=== PATIENT | male | born 1945 | race Caucasian/White ===

== ENCOUNTER 2021-08-21 15:28 | Inpatient (IN) ==
[2021-08-21] MEDS ORDERED: levoFLOXacin 750 MG TABLET PO ONE (15:32)
[2021-08-21] MEDS ORDERED: Ipratropium/Albuterol Neb 3 ML IH ONE (15:32)
[2021-08-21] MEDS ORDERED: Acetaminophen 650 MG RECTAL SUPP RC ONE (15:50)
[2021-08-21 15:58] LABS: Red Blood Count 2.77 M/mcL (4.19-5.50); White Blood Count 13.4 K/mcL (4.3-11.1)
[2021-08-21 15:59] LABS: Basophils % 0.2 %; Hematocrit 27.7 % (37.5-50.1); Immature Granulocytes % 0.7 % (0-4); Lymphocytes # 0.4 K/mcL (0.6-4.6); Lymphocytes % 3.3 %; Mean Corpuscular HGB Conc 32.5 g/dL (31.6-35.5); Mean Corpuscular Hemoglobin 32.5 pg (28.0-33.3); Mean Platelet Volume 9.8 fL (9.4-12.4); Monocytes # 0.8 K/mcL (0.0-1.3); Monocytes % 5.8 %; Neutrophils # 12.1 K/mcL (1.6-8.9); Nucleated Red Blood Cells 0.6 /100 WBC (0); Platelet Count 316 K/mcL (140-400); Red Cell Distribution Width 17.2 % (11.5-14.5)
[2021-08-21] MEDS ORDERED: levoFLOXacin 750 MG/150 ML 750 MG/150 ML BAG IVPB ONE (16:00)
[2021-08-21 16:18] LABS: Calcium 9.2 mg/dL (8.6-10.3); INR 1.3; Potassium 4.9 mEq/L (3.5-5.1); Prothrombin Time 14.6 Seconds (9.4-12.1)
[2021-08-21 16:23] LABS: Troponin I 1.61 ng/mL (< 0.04)
[2021-08-21] MEDS: Ipratropium 1 PUFF INHALER IH ONE ×2 (16:28→16:31)
[2021-08-21] MEDS ORDERED: *HR* Heparin 5,000 UNIT/ML VIAL IVP ONE (16:48)
[2021-08-21] MEDS ORDERED: *HR* Heparin 5,000 UNIT/ML VIAL IVP PRN ×2 (16:48)
[2021-08-21] MEDS: Heparin 25,000UNIT/250ML 1/2NS 25,000 UNIT/250 ML IV.SOLN IVC SCH (17:27)
[2021-08-21 17:38] LABS: Hematocrit 26.3 % (37.5-50.1); Hemoglobin 8.4 g/dL (12.9-16.9); Mean Corpuscular HGB Conc 31.9 g/dL (31.6-35.5); Mean Corpuscular Hemoglobin 31.5 pg (28.0-33.3); Mean Corpuscular Volume 98.5 fL (83.0-100.0); Mean Platelet Volume 10.5 fL (9.4-12.4); Platelet Count 296 K/mcL (140-400); Red Blood Count 2.67 M/mcL (4.19-5.50); Red Cell Distribution Width 17.1 % (11.5-14.5); White Blood Count 13.9 K/mcL (4.3-11.1)
[2021-08-21] MEDS ORDERED: Naloxone 0.4 MG/ML INJ IVP PRN (17:50)
[2021-08-21] MEDS ORDERED: Ondansetron 4 MG/2 ML VIAL IVP PRN (17:50)
[2021-08-21 17:52] LABS: Heparin anti-factor XA UFH < 0.04 IU/mL (0.30-0.70); INR 1.3; Prothrombin Time 14.3 Seconds (9.4-12.1)
[2021-08-21] MEDS ORDERED: Vancomycin (wt based) 1,000 MG VIAL IVPB SCH (18:00)
[2021-08-21] MEDS ORDERED: Perflutren Lipid Microsphere 1.3 ML in 0.9 % Sodium Chloride 8.7 ML IVP PRN (18:03)
[2021-08-21] MEDS ORDERED: Morphine Sulfate 2 MG/ML SYRINGE IVP PRN (18:04)
[2021-08-21] MEDS ORDERED: Acetaminophen 650 MG RECTAL SUPP RC PRN (18:05)
[2021-08-21] MEDS ORDERED: Albuterol 2.5 MG/3 ML NEBULIZER IH PRN (18:06)
[2021-08-21] MEDS ORDERED: Vancomycin 1,250 MG/262.5 ML IV.SOLN IVPB ONE (18:08)
[2021-08-21] MEDS: Piperacillin/Tazobactam 3.375 GM in 0.9 % Sodium Chloride Mini Bag 100 ML IVPB SCH (20:37)
[2021-08-21] MEDS: Furosemide 20 MG/2 ML VIAL IVP SCH (20:38)
[2021-08-21] MEDS: Ipratropium 1 PUFF INHALER IH SCH (20:39)
[2021-08-21] MEDS: 0.9 % Sodium Chloride 1,000 ML IVC SCH (21:08)
[2021-08-21 22:55] LABS: Influenza A PCR Negative (Negative); Influenza B PCR Negative (Negative); Resp. Syncytial Virus PCR Negative (Negative)
[2021-08-21 23:00] LABS: SARS-CoV-2 by PCR (In House) Positive (Negative)
[2021-08-21 23:16] LABS: Albumin 3.9 g/dL (3.5-5.7); Albumin/Globulin Ratio 1.6 (1.1-2.2); Bilirubin,Direct 0.1 mg/dL (0.0-0.2); Bilirubin,Indirect 1.1 mg/dL (0.0-1.0); Bilirubin,Total 1.2 mg/dL (0.3-1.0); Globulin 2.5 g/dL (2.4-3.5); Total Protein 6.4 g/dL (6.4-8.9); Troponin I 1.73 ng/mL (< 0.04)
[2021-08-21] MEDS: Insulin LISPRO 300 UNITS/3 ML VIAL SUBQ SCH (23:30)
[2021-08-21] MEDS: *HR* Metoprolol 5 MG/5 ML VIAL IVP SCH (23:31)
[2021-08-22] MEDS: Ipratropium 1 PUFF INHALER IH SCH ×6 (00:11→21:00)
[2021-08-22 01:10] LABS: Basophils % 0.1 %; Hematocrit 25.6 % (37.5-50.1); Hemoglobin 8.2 g/dL (12.9-16.9); Immature Granulocytes % 0.5 % (0-4); Lymphocytes # 0.7 K/mcL (0.6-4.6); Lymphocytes % 3.5 %; Mean Platelet Volume 10.1 fL (9.4-12.4); Monocytes # 0.5 K/mcL (0.0-1.3); Monocytes % 2.7 %; Neutrophils # 18.5 K/mcL (1.6-8.9); Nucleated Red Blood Cells 0.2 /100 WBC (0); Platelet Count 268 K/mcL (140-400); Red Blood Count 2.56 M/mcL (4.19-5.50); Red Cell Distribution Width 17.2 % (11.5-14.5); Segmented Neutrophils % 93.2 %; White Blood Count 19.9 K/mcL (4.3-11.1)
[2021-08-22 01:22] LABS: INR 1.5; Prothrombin Time 16.9 Seconds (9.4-12.1)
[2021-08-22 01:25] LABS: C-Reactive Protein 86 mg/L (Less than 10); Lactate Dehydrogenase 205 Units/L (140-271)
[2021-08-22 01:41] LABS: Activated Partial Thrombo Time 180.1 Seconds (26.0-36.0)
[2021-08-22 01:43] LABS: Albumin 3.6 g/dL (3.5-5.7); Albumin/Globulin Ratio 1.4 (1.1-2.2); Bilirubin,Total 1.3 mg/dL (0.3-1.0); Calcium 8.3 mg/dL (8.6-10.3); Chol/HDL Ratio 4.2 (0-4.9); Globulin 2.5 g/dL (2.4-3.5); Magnesium 1.2 mg/dL (1.6-2.6); Phosphorous 3.6 mg/dL (2.7-4.5); Potassium 4.4 mEq/L (3.5-5.1); Total Protein 6.1 g/dL (6.4-8.9)
[2021-08-22 01:44] LABS: Ferritin 1207 ng/mL (20-250)
[2021-08-22 01:49] LABS: Estimated Average Glucose 160 mg/dl; Hemoglobin A1C 7.2 %
[2021-08-22 02:01] LABS: Heparin anti-factor XA UFH 1.01 IU/mL (0.30-0.70)
[2021-08-22] MEDS: Piperacillin/Tazobactam 3.375 GM in 0.9 % Sodium Chloride Mini Bag 100 ML IVPB SCH ×3 (03:29→20:35)
[2021-08-22] MEDS: Insulin LISPRO 300 UNITS/3 ML VIAL SUBQ SCH ×3 (05:16→18:22)
[2021-08-22] MEDS ORDERED: Famotidine 20 MG/2 ML VIAL IVP SCH (06:00)
[2021-08-22] MEDS: Furosemide 20 MG/2 ML VIAL IVP SCH ×2 (09:14→20:35)
[2021-08-22] MEDS: *HR* Metoprolol 5 MG/5 ML VIAL IVP SCH ×3 (11:01→20:41)
[2021-08-22] MEDS: Haloperidol Lactate 5 MG/ML VIAL IVP PRN ×2 (13:04→21:30)
[2021-08-22] MEDS ORDERED: lisinopriL 5 MG TABLET PO SCH (18:00)
[2021-08-22] MEDS: Mirtazapine 15 MG TABLET PO SCH (20:36)
[2021-08-22] MEDS ORDERED: Vancomycin 1,250 MG/262.5 ML IV.SOLN IVPB SCH (21:00)
[2021-08-22] MEDS: Heparin 25,000UNIT/250ML 1/2NS 25,000 UNIT/250 ML IV.SOLN IVC SCH (23:31)
[2021-08-23] MEDS: Ipratropium 1 PUFF INHALER IH SCH ×4 (00:07→11:50)
[2021-08-23 01:57] LABS: Basophils % 0.1 %; Monocytes % 2.3 %; Nucleated Red Blood Cells 0.2 /100 WBC (0); Red Cell Distribution Width 17.3 % (11.5-14.5)
[2021-08-23 01:58] LABS: Hematocrit 24.5 % (37.5-50.1); Hemoglobin 7.8 g/dL (12.9-16.9); Immature Granulocytes % 0.8 % (0-4); Lymphocytes # 1.1 K/mcL (0.6-4.6); Lymphocytes % 4.5 %; Mean Corpuscular HGB Conc 31.8 g/dL (31.6-35.5); Mean Corpuscular Hemoglobin 32.1 pg (28.0-33.3); Mean Corpuscular Volume 100.8 fL (83.0-100.0); Monocytes # 0.6 K/mcL (0.0-1.3); Platelet Count 232 K/mcL (140-400); Red Blood Count 2.43 M/mcL (4.19-5.50); Segmented Neutrophils % 92.3 %; White Blood Count 25.2 K/mcL (4.3-11.1)
[2021-08-23 02:09] LABS: Neutrophils # 23.3 K/mcL (1.6-8.9)
[2021-08-23 02:20] LABS: Albumin 3.4 g/dL (3.5-5.7); Albumin/Globulin Ratio 1.3 (1.1-2.2); Bilirubin,Total 0.7 mg/dL (0.3-1.0); Calcium 8.4 mg/dL (8.6-10.3); Globulin 2.7 g/dL (2.4-3.5); Magnesium 1.8 mg/dL (1.6-2.6); Potassium 4.2 mEq/L (3.5-5.1); Total Protein 6.1 g/dL (6.4-8.9)
[2021-08-23 02:38] LABS: Anisocytosis 1+ (Not Present); Burr Cells 1+ (Not Present); Platelet Estimate Normal (Normal); Poikilocytosis 1+ (Not Present)
[2021-08-23] MEDS: *HR* Metoprolol 5 MG/5 ML VIAL IVP SCH ×3 (03:21→12:08)
[2021-08-23] MEDS: Insulin LISPRO 300 UNITS/3 ML VIAL SUBQ SCH ×4 (03:21→18:11)
[2021-08-23] MEDS: 0.9 % Sodium Chloride 1,000 ML IVC SCH (03:31)
[2021-08-23] MEDS: Piperacillin/Tazobactam 3.375 GM in 0.9 % Sodium Chloride Mini Bag 100 ML IVPB SCH ×3 (04:11→18:06)
[2021-08-23] MEDS: Famotidine 20 MG/2 ML VIAL IVP SCH (06:32)
[2021-08-23] MEDS: Furosemide 20 MG/2 ML VIAL IVP SCH (08:04)
[2021-08-23 08:16] LABS: Hematocrit 26.5 % (37.5-50.1); Hemoglobin 8.4 g/dL (12.9-16.9)
[2021-08-23] MEDS: Aspirin 81 MG TAB.CHEW PO SCH (11:56)
[2021-08-23] MEDS: Haloperidol Lactate 5 MG/ML VIAL IVP PRN (14:12)
[2021-08-23] MEDS ORDERED: Ipratropium 1 PUFF INHALER IH PRN (14:43)
[2021-08-23] MEDS ORDERED: Perflutren Lipid Microsphere 1.3 ML in 0.9 % Sodium Chloride 8.7 ML IVP PRN (14:59)
[2021-08-23] MEDS ORDERED: Insulin LISPRO 300 UNITS/3 ML VIAL SUBQ SCH (21:00)
[2021-08-23] MEDS ORDERED: Haloperidol Lactate 5 MG/ML VIAL IM ONE (21:21)
[2021-08-23] MEDS: Mirtazapine 15 MG TABLET PO SCH (21:44)
[2021-08-24 02:32] LABS: Basophils % 0.1 %; Hematocrit 25.5 % (37.5-50.1); Hemoglobin 8.2 g/dL (12.9-16.9); Lymphocytes # 0.7 K/mcL (0.6-4.6); Lymphocytes % 5.2 %; Mean Corpuscular HGB Conc 32.2 g/dL (31.6-35.5); Mean Corpuscular Hemoglobin 32.5 pg (28.0-33.3); Mean Corpuscular Volume 101.2 fL (83.0-100.0); Mean Platelet Volume 11.3 fL (9.4-12.4); Monocytes # 0.6 K/mcL (0.0-1.3); Monocytes % 4.2 %; Neutrophils # 12.1 K/mcL (1.6-8.9); Nucleated Red Blood Cells 0.2 /100 WBC (0); Platelet Count 253 K/mcL (140-400); Red Blood Count 2.52 M/mcL (4.19-5.50); Red Cell Distribution Width 17.5 % (11.5-14.5); Segmented Neutrophils % 89.5 %; White Blood Count 13.5 K/mcL (4.3-11.1)
[2021-08-24 02:53] LABS: Albumin 3.7 g/dL (3.5-5.7); Albumin/Globulin Ratio 1.4 (1.1-2.2); Bilirubin,Total 0.8 mg/dL (0.3-1.0); Calcium 8.6 mg/dL (8.6-10.3); Globulin 2.7 g/dL (2.4-3.5); Potassium 4.3 mEq/L (3.5-5.1); Total Protein 6.4 g/dL (6.4-8.9)
[2021-08-24] MEDS: Piperacillin/Tazobactam 3.375 GM in 0.9 % Sodium Chloride Mini Bag 100 ML IVPB SCH ×2 (04:14→12:24)
[2021-08-24] MEDS: Famotidine 20 MG/2 ML VIAL IVP SCH (04:58)
[2021-08-24] MEDS: Insulin LISPRO 300 UNITS/3 ML VIAL SUBQ SCH ×2 (09:16→12:24)
[2021-08-24] MEDS: Aspirin 81 MG TAB.CHEW PO SCH (09:17)
[2021-08-24 11:32] VITALS: BP 159/82; PULSE 65; TEMP 97.9; O2SAT 95
[2021-08-24] MEDS ORDERED: Furosemide 20 MG TABLET PO PRN (13:59)
[2021-08-25] MEDS ORDERED: Metoprolol XL (24 HR) Succ 50 MG TAB.ER.24H PO SCH (09:00)
[2021-08-26 12:26] LABS: ABG Base Excess -3 mEq/L (-2 to 3); ABG HCO3 20 mEq/L (21-27); ABG Oxygen Saturation 91 % (95-98); ABG PCO2 28 mmHg (35-45); ABG PH 7.47 pH Units (7.32-7.45); ABG PO2 57 mmHg (85-104); ABG TCO2 21 mEq/L (20-26)
== END 2021-08-24 17:13 | DRG 871 ==
LOC: 2NENU 15:28 → EMEROOARM 15:28 → 2NENU 18:00 → SUATTDRO 18:50
PROVIDERS: ADMIT Internal Medicine; ATTEND Family Medicine

== ENCOUNTER 2021-08-26 08:50 | Inpatient (IN) ==
[2021-08-26] MEDS ORDERED: 0.9 % Sodium Chloride 1,000 ML IVC ONE (08:59)
[2021-08-26 09:36] LABS: Basophils % 0.3 %; Eosinophils % 0.1 %; Hematocrit 27.8 % (37.5-50.1); Hemoglobin 8.8 g/dL (12.9-16.9); Immature Granulocytes % 3.5 % (0-4); Lymphocytes # 0.7 K/mcL (0.6-4.6); Lymphocytes % 5.5 %; Mean Corpuscular HGB Conc 31.7 g/dL (31.6-35.5); Mean Corpuscular Hemoglobin 32.2 pg (28.0-33.3); Mean Corpuscular Volume 101.8 fL (83.0-100.0); Mean Platelet Volume 10.4 fL (9.4-12.4); Monocytes # 1.1 K/mcL (0.0-1.3); Monocytes % 9.3 %; Neutrophils # 9.6 K/mcL (1.6-8.9); Nucleated Red Blood Cells 0.2 /100 WBC (0); Platelet Count 321 K/mcL (140-400); Red Blood Count 2.73 M/mcL (4.19-5.50); Segmented Neutrophils % 81.3 %; White Blood Count 11.8 K/mcL (4.3-11.1)
[2021-08-26 09:43] LABS: INR 1.2; Prothrombin Time 13.9 Seconds (9.4-12.1)
[2021-08-26 09:58] LABS: Alanine Aminotransferase 17 Units/L (7-52); Albumin 3.6 g/dL (3.5-5.7); Albumin/Globulin Ratio 1.2 (1.1-2.2); Alkaline Phosphatase 60 Units/L (34-104); Aspartate Amino Transferase 14 Units/L (13-39); BUN/Creatinine Ratio 31 (6-26); Bilirubin,Direct 0.2 mg/dL (0.0-0.2); Bilirubin,Indirect 0.6 mg/dL (0.0-1.0); Bilirubin,Total 0.8 mg/dL (0.3-1.0); Blood Urea Nitrogen 49 mg/dL (8-23); Calcium 8.6 mg/dL (8.6-10.3); Carbon Dioxide 20 mEq/L (23-29); Chloride 110 mEq/L (98-107); Ethanol < 10 mg/dL (Less than 10); Globulin 2.9 g/dL (2.4-3.5); Glucose 292 mg/dL (70-105); Osmolality,Calculated 318 (280-300); Potassium 3.6 mEq/L (3.5-5.1); Sodium 142 mEq/L (136-145); Total Protein 6.5 g/dL (6.4-8.9); eGFR For African Americans 52 (> 60); eGFR For Non-African Americans 43 (> 60)
[2021-08-26 10:31] LABS: Troponin I 0.81 ng/mL (< 0.04)
[2021-08-26] MEDS ORDERED: Acetaminophen 325 MG TABLET PO PRN (12:12)
[2021-08-26] MEDS ORDERED: Furosemide 20 MG TABLET PO PRN (12:19)
[2021-08-26] MEDS ORDERED: *HR* Dextrose 50 % in Water (Syg) 50 ML SYRINGE IVP PRN (12:20)
[2021-08-26] MEDS ORDERED: D5% in Water 1,000 ML IVC PRN (12:20)
[2021-08-26] MEDS ORDERED: Dextrose Gel 15 GM/37.5 ML TUBE PO PRN ×2 (12:20)
[2021-08-26] MEDS ORDERED: Naloxone 0.4 MG/ML INJ IVP PRN (12:31)
[2021-08-26] MEDS ORDERED: Ondansetron 4 MG/2 ML VIAL IVP PRN (12:31)
[2021-08-26] MEDS ORDERED: Morphine Sulfate 2 MG/ML SYRINGE IVP STA (12:40)
[2021-08-26] MEDS ORDERED: Acetaminophen 650 MG RECTAL SUPP RC PRN (15:51)
[2021-08-26] MEDS: Ipratropium 1 PUFF INHALER IH SCH ×3 (16:08→23:48)
[2021-08-26] MEDS: lisinopriL 5 MG TABLET PO SCH (16:37)
[2021-08-26] MEDS: Insulin LISPRO 300 UNITS/3 ML VIAL SUBQ SCH ×2 (16:37→21:53)
[2021-08-26] MEDS: Piperacillin/Tazobactam 3.375 GM in 0.9 % Sodium Chloride Mini Bag 100 ML IVPB SCH ×2 (16:37→22:47)
[2021-08-26] MEDS: Ringers Solution, Lactated 1,000 ML IVC SCH (17:15)
[2021-08-26] MEDS: Mirtazapine 15 MG TABLET PO SCH (21:53)
[2021-08-26] MEDS: *HR* Heparin 5,000 UNIT/ML VIAL SQ SCH (22:47)
[2021-08-27] MEDS: Ipratropium 1 PUFF INHALER IH SCH ×6 (03:41→23:32)
[2021-08-27] MEDS: *HR* Heparin 5,000 UNIT/ML VIAL SQ SCH ×3 (06:11→22:20)
[2021-08-27] MEDS: Ringers Solution, Lactated 1,000 ML IVC SCH (06:12)
[2021-08-27] MEDS: Piperacillin/Tazobactam 3.375 GM in 0.9 % Sodium Chloride Mini Bag 100 ML IVPB SCH ×3 (06:12→22:21)
[2021-08-27 07:18] LABS: ABG Base Excess -3 mEq/L (-2 to 3); ABG HCO3 20 mEq/L (21-27); ABG Oxygen Saturation 91 % (95-98); ABG PCO2 28 mmHg (35-45); ABG PH 7.47 pH Units (7.32-7.45); ABG PO2 57 mmHg (85-104); ABG TCO2 21 mEq/L (20-26)
[2021-08-27] MEDS: Insulin LISPRO 300 UNITS/3 ML VIAL SUBQ SCH ×4 (11:25→22:22)
[2021-08-27] MEDS: Ascorbic Acid 500 MG TABLET PO SCH (11:26)
[2021-08-27] MEDS: Aspirin 81 MG TAB.CHEW PO SCH (11:26)
[2021-08-27 12:13] LABS: Basophils # 0.1 K/mcL (0.0-0.2); Hematocrit 26.9 % (37.5-50.1); Hemoglobin 8.2 g/dL (12.9-16.9); Mean Corpuscular HGB Conc 30.5 g/dL (31.6-35.5); Mean Corpuscular Hemoglobin 31.5 pg (28.0-33.3); Mean Corpuscular Volume 103.5 fL (83.0-100.0); Mean Platelet Volume 10.1 fL (9.4-12.4); Platelet Count 307 K/mcL (140-400); Red Cell Distribution Width 18.2 % (11.5-14.5); White Blood Count 13.2 K/mcL (4.3-11.1)
[2021-08-27 12:20] LABS: INR 1.2; Prothrombin Time 13.3 Seconds (9.4-12.1)
[2021-08-27 12:33] LABS: Alanine Aminotransferase 14 Units/L (7-52); Albumin 3.3 g/dL (3.5-5.7); Albumin/Globulin Ratio 1.1 (1.1-2.2); Alkaline Phosphatase 57 Units/L (34-104); Aspartate Amino Transferase 18 Units/L (13-39); BUN/Creatinine Ratio 30 (6-26); Bilirubin,Total 0.7 mg/dL (0.3-1.0); Blood Urea Nitrogen 42 mg/dL (8-23); Calcium 8.3 mg/dL (8.6-10.3); Carbon Dioxide 22 mEq/L (23-29); Chloride 116 mEq/L (98-107); Chol/HDL Ratio 6.2 (0-4.9); Cholesterol 155 mg/dL (< 200); Globulin 2.9 g/dL (2.4-3.5); Glucose 218 mg/dL (70-105); HDL Cholesterol 25 mg/dL (40-59); LDL Cholesterol,Calculated 81 mg/dL (< 100); Magnesium 1.9 mg/dL (1.6-2.6); Osmolality,Calculated 319 (280-300); Phosphorous 3.2 mg/dL (2.7-4.5); Potassium 3.6 mEq/L (3.5-5.1); Sodium 146 mEq/L (136-145); Total Protein 6.2 g/dL (6.4-8.9); Triglycerides 246 mg/dL (< 150); eGFR For African Americans > 60 (> 60); eGFR For Non-African Americans 50 (> 60)
[2021-08-27 12:40] LABS: Bilirubin,Urine Negative (Negative); Blood,Urine Moderate (Negative); Clarity,Urine Clear (Clear); Color,Urine Light-Yellow (Yellow); Glucose,Urine (UA) Normal (Normal); Ketones,Urine 10 mg/dL (Negative); Leukocyte Esterase,Urine Negative (Negative); Mucus,Urine Few per lpf (None-Few); Nitrite,Urine Negative (Negative); Protein,Urine 100 mg/dL (Neg-Trace); RBC,Urine 0-3 per hpf (0-3); Specific Gravity,Urine > 1.030 (1.010-1.025); Urobilinogen,Urine Normal (Normal); WBC,Urine 0-3 per hpf (0-3)
[2021-08-27 12:41] LABS: Amphetamine Screen,Urine Negative ng/mL (Cutoff=1000); Barbiturate Screen,Urine Negative ng/mL (Cutoff=200); Benzodiazepines Screen,Urine Negative ng/mL (Cutoff=200); Cannabinoid Screen,Urine Negative ng/mL (Cutoff = 50); Cocaine Screen,Urine Negative ng/mL (Cutoff= 300); Opiate Screen,Urine Negative ng/mL (Cutoff=300); Phencyclidine Screen,Urine Negative ng/mL (Cutoff=25)
[2021-08-27 13:01] LABS: Estimated Average Glucose 171 mg/dl; Hemoglobin A1C 7.6 %
[2021-08-27 13:21] LABS: Eosinophils # 0.1 K/mcL (0.0-0.6); Large Platelets Present (Not Present); Lymphocytes # 0.7 K/mcL (0.6-4.6); Monocytes # 1.5 K/mcL (0.0-1.3); Neutrophils # 10.8 K/mcL (1.6-8.9); Platelet Estimate Normal (Normal)
[2021-08-27 13:22] LABS: Anisocytosis 2+ (Not Present); Poikilocytosis 1+ (Not Present)
[2021-08-27] MEDS: D5% in Water 1,000 ML IVC SCH (13:28)
[2021-08-27] MEDS: *HR* Labetalol 20 MG/4 ML SYRINGE IVP PRN (13:29)
[2021-08-27] MEDS: Thiamine (B-1) 100 MG TABLET PO SCH (13:49)
[2021-08-27] MEDS: Furosemide 20 MG/2 ML VIAL IVP SCH (15:09)
[2021-08-27] MEDS: lisinopriL 5 MG TABLET PO SCH (16:35)
[2021-08-27 17:32] LABS: Folate 13.1 ng/mL (3.0-16.0)
[2021-08-27 17:33] LABS: Vitamin B12 > 1500 pg/mL (250-1100)
[2021-08-27] MEDS: Mirtazapine 15 MG TABLET PO SCH (22:21)
[2021-08-28] MEDS: Ipratropium 1 PUFF INHALER IH SCH ×6 (03:37→23:31)
[2021-08-28] MEDS: Piperacillin/Tazobactam 3.375 GM in 0.9 % Sodium Chloride Mini Bag 100 ML IVPB SCH ×3 (05:42→21:09)
[2021-08-28] MEDS: *HR* Heparin 5,000 UNIT/ML VIAL SQ SCH ×3 (05:42→21:11)
[2021-08-28] MEDS: D5% in Water 1,000 ML IVC SCH (05:43)
[2021-08-28 05:44] LABS: Basophils % 0.3 %; Hemoglobin 7.6 g/dL (12.9-16.9); Immature Granulocytes % 7.3 % (0-4); Lymphocytes # 0.6 K/mcL (0.6-4.6); Lymphocytes % 6.9 %; Mean Corpuscular HGB Conc 31.7 g/dL (31.6-35.5); Mean Corpuscular Hemoglobin 32.5 pg (28.0-33.3); Mean Corpuscular Volume 102.6 fL (83.0-100.0); Mean Platelet Volume 10.3 fL (9.4-12.4); Monocytes # 0.4 K/mcL (0.0-1.3); Monocytes % 4.1 %; Neutrophils # 7.2 K/mcL (1.6-8.9); Platelet Count 335 K/mcL (140-400); Red Blood Count 2.34 M/mcL (4.19-5.50); Red Cell Distribution Width 18.4 % (11.5-14.5); Segmented Neutrophils % 81.4 %; White Blood Count 8.8 K/mcL (4.3-11.1)
[2021-08-28 06:10] LABS: Alanine Aminotransferase 11 Units/L (7-52); Albumin 3.1 g/dL (3.5-5.7); Albumin/Globulin Ratio 1.1 (1.1-2.2); Alkaline Phosphatase 55 Units/L (34-104); Aspartate Amino Transferase 13 Units/L (13-39); BUN/Creatinine Ratio 30 (6-26); Bilirubin,Total 0.6 mg/dL (0.3-1.0); Blood Urea Nitrogen 44 mg/dL (8-23); Carbon Dioxide 21 mEq/L (23-29); Chloride 111 mEq/L (98-107); Globulin 2.8 g/dL (2.4-3.5); Glucose 421 mg/dL (70-105); Lactate Dehydrogenase 205 Units/L (140-271); Magnesium 1.9 mg/dL (1.6-2.6); Osmolality,Calculated 323 (280-300); Potassium 3.6 mEq/L (3.5-5.1); Sodium 142 mEq/L (136-145); Total Protein 5.9 g/dL (6.4-8.9); eGFR For African Americans 55 (> 60); eGFR For Non-African Americans 46 (> 60)
[2021-08-28 06:31] LABS: Anisocytosis 1+ (Not Present); Hypochromasia Present (Not Present); Platelet Estimate Normal (Normal)
[2021-08-28] MEDS: Insulin LISPRO 300 UNITS/3 ML VIAL SUBQ SCH ×4 (08:08→21:11)
[2021-08-28 08:12] LABS: C-Reactive Protein 131 mg/L (Less than 10)
[2021-08-28 09:26] LABS: Ferritin > 1500 ng/mL (20-250)
[2021-08-28] MEDS: Aspirin 81 MG TAB.CHEW PO SCH (10:15)
[2021-08-28] MEDS: Ascorbic Acid 500 MG TABLET PO SCH (10:16)
[2021-08-28] MEDS: Thiamine (B-1) 100 MG TABLET PO SCH (10:16)
[2021-08-28] MEDS: Furosemide 20 MG/2 ML VIAL IVP SCH (10:24)
[2021-08-28] MEDS: Ringers Solution, Lactated 1,000 ML IVC SCH (12:36)
[2021-08-28] MEDS ORDERED: Remdesivir 200 MG in 0.9 % Sodium Chloride 100 ML IVPB ONE (14:00)
[2021-08-28] MEDS: lisinopriL 5 MG TABLET PO SCH (16:41)
[2021-08-28] MEDS: Mirtazapine 15 MG TABLET PO SCH (20:54)
[2021-08-29] MEDS: Ipratropium 1 PUFF INHALER IH SCH ×5 (04:01→20:19)
[2021-08-29] MEDS: Ringers Solution, Lactated 1,000 ML IVC SCH ×2 (05:14→13:53)
[2021-08-29] MEDS: *HR* Heparin 5,000 UNIT/ML VIAL SQ SCH ×3 (05:15→20:54)
[2021-08-29] MEDS: *HR* Labetalol 20 MG/4 ML SYRINGE IVP PRN ×2 (05:37→16:51)
[2021-08-29 06:28] LABS: Basophils # 0.1 K/mcL (0.0-0.2); Basophils % 0.3 %; Immature Granulocytes % 4.4 % (0-4); Lymphocytes # 0.8 K/mcL (0.6-4.6); Lymphocytes % 3.8 %; Mean Corpuscular Hemoglobin 32.7 pg (28.0-33.3); Mean Platelet Volume 10.7 fL (9.4-12.4); Monocytes # 0.7 K/mcL (0.0-1.3); Monocytes % 3.6 %; Nucleated Red Blood Cells 0.1 /100 WBC (0); Platelet Count 462 K/mcL (140-400); Red Blood Count 2.45 M/mcL (4.19-5.50); Red Cell Distribution Width 17.9 % (11.5-14.5); Segmented Neutrophils % 87.9 %
[2021-08-29 06:33] LABS: Neutrophils # 17.3 K/mcL (1.6-8.9); White Blood Count 19.7 K/mcL (4.3-11.1)
[2021-08-29 06:42] LABS: Albumin 3.2 g/dL (3.5-5.7); Albumin/Globulin Ratio 1.1 (1.1-2.2); Bilirubin,Total 0.6 mg/dL (0.3-1.0); Calcium 8.2 mg/dL (8.6-10.3); Globulin 2.8 g/dL (2.4-3.5); Potassium 3.5 mEq/L (3.5-5.1)
[2021-08-29] MEDS: Piperacillin/Tazobactam 3.375 GM in 0.9 % Sodium Chloride Mini Bag 100 ML IVPB SCH (08:55)
[2021-08-29] MEDS: Insulin LISPRO 300 UNITS/3 ML VIAL SUBQ SCH ×4 (08:57→20:47)
[2021-08-29] MEDS: Aspirin 81 MG TAB.CHEW PO SCH (08:58)
[2021-08-29] MEDS: Thiamine (B-1) 100 MG TABLET PO SCH (08:58)
[2021-08-29] MEDS: Ascorbic Acid 500 MG TABLET PO SCH (08:58)
[2021-08-29] MEDS: Furosemide 20 MG/2 ML VIAL IVP SCH (08:59)
[2021-08-29] MEDS: Remdesivir 100 MG in 0.9 % Sodium Chloride 100 ML IVPB SCH (13:00)
[2021-08-29] MEDS: D5% in Water 1,000 ML IVC SCH (14:03)
[2021-08-29] MEDS: lisinopriL 5 MG TABLET PO SCH (16:59)
[2021-08-29] MEDS: Mirtazapine 15 MG TABLET PO SCH (20:53)
[2021-08-30] MEDS: Ipratropium 1 PUFF INHALER IH SCH ×6 (00:01→20:33)
[2021-08-30] MEDS ORDERED: *HR* Dextrose 50 % in Water (Syg) 50 ML SYRINGE IVP PRN (00:54)
[2021-08-30] MEDS ORDERED: D5% in Water 1,000 ML IVC PRN (00:54)
[2021-08-30] MEDS ORDERED: Dextrose Gel 15 GM/37.5 ML TUBE PO PRN ×2 (00:54)
[2021-08-30] MEDS: Insulin LISPRO 300 UNITS/3 ML VIAL SUBQ SCH ×6 (01:02→21:21)
[2021-08-30 02:30] LABS: Basophils % 0.2 %; Hematocrit 24.3 % (37.5-50.1); Hemoglobin 7.6 g/dL (12.9-16.9); Immature Granulocytes % 3.9 % (0-4); Lymphocytes # 0.7 K/mcL (0.6-4.6); Lymphocytes % 3.3 %; Mean Corpuscular HGB Conc 31.3 g/dL (31.6-35.5); Mean Corpuscular Hemoglobin 31.9 pg (28.0-33.3); Mean Corpuscular Volume 102.1 fL (83.0-100.0); Mean Platelet Volume 10.8 fL (9.4-12.4); Monocytes # 0.8 K/mcL (0.0-1.3); Monocytes % 3.6 %; Neutrophils # 19.1 K/mcL (1.6-8.9); Nucleated Red Blood Cells 0.1 /100 WBC (0); Platelet Count 483 K/mcL (140-400); Red Blood Count 2.38 M/mcL (4.19-5.50); Red Cell Distribution Width 18.2 % (11.5-14.5); White Blood Count 21.4 K/mcL (4.3-11.1)
[2021-08-30 02:50] LABS: BUN/Creatinine Ratio 40 (6-26); Blood Urea Nitrogen 55 mg/dL (8-23); Calcium 7.8 mg/dL (8.6-10.3); Carbon Dioxide 23 mEq/L (23-29); Chloride 111 mEq/L (98-107); Glucose 310 mg/dL (70-105); Osmolality,Calculated 317 (280-300); Potassium 3.7 mEq/L (3.5-5.1); Sodium 140 mEq/L (136-145); eGFR For African Americans > 60 (> 60); eGFR For Non-African Americans 50 (> 60)
[2021-08-30] MEDS: D5% in Water 1,000 ML IVC SCH (03:10)
[2021-08-30] MEDS: *HR* Heparin 5,000 UNIT/ML VIAL SQ SCH ×3 (05:37→21:21)
[2021-08-30] MEDS: Ascorbic Acid 500 MG TABLET PO SCH (09:01)
[2021-08-30] MEDS: Aspirin 81 MG TAB.CHEW PO SCH (09:01)
[2021-08-30] MEDS: Thiamine (B-1) 100 MG TABLET PO SCH (09:01)
[2021-08-30] MEDS: Remdesivir 100 MG in 0.9 % Sodium Chloride 100 ML IVPB SCH (13:34)
[2021-08-30] MEDS: lisinopriL 5 MG TABLET PO SCH (17:14)
[2021-08-30] MEDS: Mirtazapine 15 MG TABLET PO SCH (21:22)
[2021-08-31] MEDS: Ipratropium 1 PUFF INHALER IH SCH ×6 (00:01→20:04)
[2021-08-31 04:59] LABS: Basophils # 0.1 K/mcL (0.0-0.2); Basophils % 0.4 %; Hematocrit 26.3 % (37.5-50.1); Hemoglobin 8.1 g/dL (12.9-16.9); Immature Granulocytes % 3.9 % (0-4); Lymphocytes # 1.2 K/mcL (0.6-4.6); Lymphocytes % 5.6 %; Mean Corpuscular HGB Conc 30.8 g/dL (31.6-35.5); Mean Corpuscular Hemoglobin 31.4 pg (28.0-33.3); Mean Corpuscular Volume 101.9 fL (83.0-100.0); Mean Platelet Volume 10.5 fL (9.4-12.4); Monocytes # 1.2 K/mcL (0.0-1.3); Monocytes % 5.7 %; Neutrophils # 17.8 K/mcL (1.6-8.9); Nucleated Red Blood Cells 0.4 /100 WBC (0); Platelet Count 476 K/mcL (140-400); Red Blood Count 2.58 M/mcL (4.19-5.50); Red Cell Distribution Width 17.9 % (11.5-14.5); Segmented Neutrophils % 84.4 %; White Blood Count 21.1 K/mcL (4.3-11.1)
[2021-08-31] MEDS: *HR* Heparin 5,000 UNIT/ML VIAL SQ SCH ×3 (05:11→21:14)
[2021-08-31 05:12] LABS: BUN/Creatinine Ratio 43 (6-26); Blood Urea Nitrogen 50 mg/dL (8-23); Calcium 7.9 mg/dL (8.6-10.3); Carbon Dioxide 24 mEq/L (23-29); Chloride 113 mEq/L (98-107); Glucose 182 mg/dL (70-105); Osmolality,Calculated 314 (280-300); Potassium 3.3 mEq/L (3.5-5.1); Sodium 143 mEq/L (136-145); eGFR For African Americans > 60 (> 60); eGFR For Non-African Americans > 60 (> 60)
[2021-08-31] MEDS: Insulin LISPRO 300 UNITS/3 ML VIAL SUBQ SCH ×4 (08:46→21:13)
[2021-08-31] MEDS: Thiamine (B-1) 100 MG TABLET PO SCH (09:01)
[2021-08-31] MEDS: Aspirin 81 MG TAB.CHEW PO SCH (09:01)
[2021-08-31] MEDS: Ascorbic Acid 500 MG TABLET PO SCH (09:02)
[2021-08-31 10:09] LABS: Alanine Aminotransferase 8 Units/L (7-52); Albumin/Globulin Ratio 1.2 (1.1-2.2); Alkaline Phosphatase 63 Units/L (34-104); Aspartate Amino Transferase 11 Units/L (13-39); Bilirubin,Direct 0.2 mg/dL (0.0-0.2); Bilirubin,Indirect 0.4 mg/dL (0.0-1.0); Bilirubin,Total 0.6 mg/dL (0.3-1.0); Globulin 2.6 g/dL (2.4-3.5); Total Protein 5.6 g/dL (6.4-8.9)
[2021-08-31] MEDS: Remdesivir 100 MG in 0.9 % Sodium Chloride 100 ML IVPB SCH (13:38)
[2021-08-31] MEDS: Thiamine (B-1) 100 MG in 0.9 % Sodium Chloride 50 ML IVPB SCH (15:13)
[2021-08-31] MEDS: lisinopriL 5 MG TABLET PO SCH (16:36)
[2021-08-31] MEDS: Mirtazapine 15 MG TABLET PO SCH (21:15)
[2021-09-01] MEDS: Ipratropium 1 PUFF INHALER IH SCH ×7 (00:11→23:29)
[2021-09-01] MEDS: *HR* Heparin 5,000 UNIT/ML VIAL SQ SCH ×3 (05:49→21:09)
[2021-09-01] MEDS: Insulin LISPRO 300 UNITS/3 ML VIAL SUBQ SCH ×4 (09:11→21:10)
[2021-09-01] MEDS: Thiamine (B-1) 100 MG in 0.9 % Sodium Chloride 50 ML IVPB SCH (09:18)
[2021-09-01] MEDS: Aspirin 81 MG TAB.CHEW PO SCH (09:27)
[2021-09-01] MEDS: Ascorbic Acid 500 MG TABLET PO SCH (09:28)
[2021-09-01 11:24] LABS: Eosinophils % 0.1 %; Hemoglobin 9.2 g/dL (12.9-16.9); Monocytes % 4.2 %; Nucleated Red Blood Cells 0.5 /100 WBC (0)
[2021-09-01 11:25] LABS: Basophils # 0.1 K/mcL (0.0-0.2); Basophils % 0.4 %; Hematocrit 28.6 % (37.5-50.1); Immature Granulocytes % 3.5 % (0-4); Lymphocytes # 0.5 K/mcL (0.6-4.6); Lymphocytes % 1.8 %; Mean Corpuscular HGB Conc 32.2 g/dL (31.6-35.5); Mean Corpuscular Hemoglobin 32.5 pg (28.0-33.3); Mean Corpuscular Volume 101.1 fL (83.0-100.0); Mean Platelet Volume 10.9 fL (9.4-12.4); Monocytes # 1.3 K/mcL (0.0-1.3); Neutrophils # 26.7 K/mcL (1.6-8.9); Platelet Count 508 K/mcL (140-400); Red Blood Count 2.83 M/mcL (4.19-5.50); Red Cell Distribution Width 18.2 % (11.5-14.5); White Blood Count 29.7 K/mcL (4.3-11.1)
[2021-09-01 11:38] LABS: BUN/Creatinine Ratio 48 (6-26); Blood Urea Nitrogen 54 mg/dL (8-23); Calcium 8.2 mg/dL (8.6-10.3); Carbon Dioxide 21 mEq/L (23-29); Chloride 113 mEq/L (98-107); Glucose 244 mg/dL (70-105); Osmolality,Calculated 321 (280-300); Potassium 4.1 mEq/L (3.5-5.1); Sodium 144 mEq/L (136-145); eGFR For African Americans > 60 (> 60); eGFR For Non-African Americans > 60 (> 60)
[2021-09-01] MEDS: Remdesivir 100 MG in 0.9 % Sodium Chloride 100 ML IVPB SCH (13:45)
[2021-09-01] MEDS: lisinopriL 5 MG TABLET PO SCH (16:16)
[2021-09-01] MEDS: Mirtazapine 15 MG TABLET PO SCH (19:21)
[2021-09-02] MEDS: Ipratropium 1 PUFF INHALER IH SCH ×6 (03:39→23:47)
[2021-09-02] MEDS: *HR* Heparin 5,000 UNIT/ML VIAL SQ SCH (05:49)
[2021-09-02] MEDS: Aspirin 81 MG TAB.CHEW PO SCH (08:35)
[2021-09-02] MEDS: Ascorbic Acid 500 MG TABLET PO SCH (08:35)
[2021-09-02] MEDS: Insulin LISPRO 300 UNITS/3 ML VIAL SUBQ SCH ×2 (08:36→11:34)
[2021-09-02] MEDS: Thiamine (B-1) 100 MG in 0.9 % Sodium Chloride 50 ML IVPB SCH (08:39)
[2021-09-02 10:31] LABS: Basophils % 0.3 %; Mean Platelet Volume 11.3 fL (9.4-12.4); Monocytes % 4.5 %
[2021-09-02 10:33] LABS: Basophils # 0.1 K/mcL (0.0-0.2); Hematocrit 29.6 % (37.5-50.1); Hemoglobin 9.4 g/dL (12.9-16.9); Immature Granulocytes % 2.6 % (0-4); Lymphocytes # 0.6 K/mcL (0.6-4.6); Lymphocytes % 2.1 %; Mean Corpuscular HGB Conc 31.8 g/dL (31.6-35.5); Mean Corpuscular Hemoglobin 32.4 pg (28.0-33.3); Mean Corpuscular Volume 102.1 fL (83.0-100.0); Monocytes # 1.4 K/mcL (0.0-1.3); Neutrophils # 27.4 K/mcL (1.6-8.9); Nucleated Red Blood Cells 0.4 /100 WBC (0); Platelet Count 461 K/mcL (140-400); Red Cell Distribution Width 18.6 % (11.5-14.5); Segmented Neutrophils % 90.5 %
[2021-09-02 10:50] LABS: BUN/Creatinine Ratio 48 (6-26); Blood Urea Nitrogen 61 mg/dL (8-23); Calcium 8.2 mg/dL (8.6-10.3); Carbon Dioxide 20 mEq/L (23-29); Chloride 114 mEq/L (98-107); Glucose 238 mg/dL (70-105); Osmolality,Calculated 327 (280-300); Potassium 4.3 mEq/L (3.5-5.1); Sodium 146 mEq/L (136-145); eGFR For African Americans > 60 (> 60); eGFR For Non-African Americans 55 (> 60)
[2021-09-02 11:17] LABS: White Blood Count 30.3 K/mcL (4.3-11.1)
[2021-09-02] MEDS ORDERED: Atropine Sulfate 1% 40 DROP/2 ML BOTTLE SL PRN (12:14)
[2021-09-02] MEDS: *HR* LORazepam 2 MG/ML VIAL IVP PRN ×2 (12:22→16:38)
[2021-09-02] MEDS: Morphine Sulfate 2 MG/ML SYRINGE IVP PRN ×4 (12:22→20:20)
[2021-09-03] MEDS: *HR* LORazepam 2 MG/ML VIAL IVP PRN ×9 (01:45→23:38)
[2021-09-03] MEDS: Morphine Sulfate 2 MG/ML SYRINGE IVP PRN ×9 (01:46→23:38)
[2021-09-03] MEDS: Ipratropium 1 PUFF INHALER IH SCH ×3 (03:37→11:22)
[2021-09-03 07:17] VITALS: O2SAT 89
[2021-09-04] MEDS: *HR* LORazepam 2 MG/ML VIAL IVP PRN ×4 (02:06→08:03)
[2021-09-04] MEDS: Morphine Sulfate 2 MG/ML SYRINGE IVP PRN ×4 (02:06→08:02)
[2021-09-04 07:04] VITALS: BP 97/61; PULSE 94; TEMP 98.9
== END 2021-09-04 08:12 | disposition hospice, inpatient (51) | DRG 177 ==
LOC: EMEROOARM 08:50 → 2ANU 08:50 → SUATTDRO 12:37 → 2ANU 15:00 → SUATTDRO 08-28 12:30
PROVIDERS: ADMIT Student in an Organized Health Care Education/Training Program; ATTEND Internal Medicine

== ENCOUNTER 2021-09-03 11:49 | Inpatient (IN) ==
[2021-09-03] MEDS ORDERED: Ondansetron 4 MG/2 ML VIAL IVP PRN (12:10)
[2021-09-03] MEDS ORDERED: Atropine Sulfate 1% 40 DROP/2 ML BOTTLE SL PRN (12:10)
[2021-09-03] MEDS ORDERED: Haloperidol Lactate 5 MG/ML VIAL IVP PRN (12:10)
[2021-09-04] MEDS: Morphine Sulfate 2 MG/ML SYRINGE IVP PRN ×6 (10:16→23:27)
[2021-09-04] MEDS: *HR* LORazepam 2 MG/ML VIAL IVP PRN ×6 (10:17→23:27)
[2021-09-04] MEDS: Acetaminophen 650 MG RECTAL SUPP RC SCH ×4 (11:33→11:36)
[2021-09-04] MEDS ORDERED: Acetaminophen 650 MG RECTAL SUPP RC PRN (16:47)
[2021-09-05] MEDS: *HR* LORazepam 2 MG/ML VIAL IVP PRN ×5 (01:42→11:51)
[2021-09-05] MEDS: Morphine Sulfate 2 MG/ML SYRINGE IVP PRN ×6 (01:42→11:50)
[2021-09-05 04:36] VITALS: PULSE 109; O2SAT 89
[2021-09-05 10:57] VITALS: BP 94/57; TEMP 101.6
[2021-09-05] MEDS: Acetaminophen 650 MG RECTAL SUPP RC SCH (11:17)
== END 2021-09-05 13:48 | disposition expired | DRG 951 ==
LOC: 2ANU 09-04 08:32
PROVIDERS: ADMIT Internal Medicine Hospice and Palliative Medicine; ATTEND Internal Medicine Hospice and Palliative Medicine